=== PATIENT | male | born 1980 | race Caucasian/White ===

== ENCOUNTER 2023-04-08 14:37 | Emergency (ER) | payer SELFPAY ==
[~2023-04-08] VITALS: Ht 170.2 cm; Wt 100.0 kg
[2023-04-08 14:50] VITALS: BP 187/105; PULSE 140; RESP 18; TEMP 101.2; O2SAT 100
[2023-04-08] MEDS ORDERED: MORPHINE SULFATE 4 MG/ML CPJ (NOT FOR IM USE) IV STA (14:53)
[2023-04-08] MEDS ORDERED: ONDANSETRON HCL 4MG/2ML INJ IV STA (14:53)
[2023-04-08] MEDS ORDERED: SODIUM CHLORIDE 0.9% 1000ML BAG (SEPSIS BOLUS) IV ONE (15:00)
[2023-04-08] MEDS ORDERED: ACETAMINOPHEN 325MG TABLET PO ONE (15:00)
[2023-04-08 15:44] LABS: HEMATOCRIT. 42.3 % (42.0-52.0); HEMOGLOBIN. 14.5 g/dL (14.0-18.0); MEAN CORPUSCULAR HEMOGLOBIN 29.9 pg (28.0-32.0); MEAN CORPUSCULAR HGB CONC 34.3 g/dL (31.0-37.0); MEAN PLATELET VOLUME 8.7 fl (7.4-10.4); PLATELET 225 x1000/uL (130-400); RED BLOOD CELL COUNT 4.86 mill/uL (4.7-6.1); WHITE BLOOD COUNT 17.5 x1000/uL (4.5-11.0)
[2023-04-08 15:46] LABS: DIFFERENTIAL COMMENT 1
[2023-04-08 15:52] LABS: INDEX HEMOLYSI 1 (1-3); INDEX ICTERIC 1 (1-4); INDEX LIPEMIC 1 (1-3)
[2023-04-08 15:53] LABS: PROTHROMBIN TIME 10.8 sec (9.6-11.0)
[2023-04-08 15:55] LABS: ALBUMIN 4.2 g/dL (3.4-5.0); CALCIUM 8.9 mg/dL (8.5-10.1); CARBON DIOXIDE 25 mEq/L (21-32); ETHANOL BLOOD < 10 mg/dL (<10); GLUCOSE 153 mg/dL (70-105); UREA NITROGEN BLOOD 17 mg/dL (7-21)
[2023-04-08 16:01] LABS: ALANINE AMINOTRANSFERASE 45 IU/L (13-61); ASPARTATE AMINOTRANSFERASE 20 IU/L (15-37); CREATININE 0.8 mg/dL (0.6-1.3); NT PRO B-TYPE NATRIURETIC PEP 54 pg/mL (5-125); PROTEIN TOTAL 8.4 g/dL (6.0-8.3)
[2023-04-08 16:02] LABS: CHLORIDE 101 mEq/L (98-107); POTASSIUM 3.6 mEq/L (3.5-5.1); SODIUM 134 mEq/L (136-145)
[2023-04-08 16:04] LABS: TROPONIN I HIGH SENSITIVITY 4 ng/L (<78)
[2023-04-08 16:22] LABS: PLATELET ESTIMATE NORMAL
[2023-04-08] MEDS ORDERED: AMPICILLIN SOD/SULBACTAM NA 3 G in SODIUM CHLORIDE 0.9% 100 ML IV STA (19:13)
[2023-04-08] MEDS ORDERED: VANCOMYCIN 1G PREMIX 200 ML IV SCH (19:15)
[2023-04-08] MEDS ORDERED: METRONIDAZOLE 500 MG PREMIX 100 ML IV ONE (19:30)
== END 2023-04-08 22:00 | disposition left against medical advice (07) ==
LOC: ER 14:37 → EDBEDREQ 21:36 → ER 22:00 → CANBEDREQ 23:36
DX: R10.31 Right lower quadrant pain (principal); R10.32 Left lower quadrant pain; R50.9 Fever, unspecified; K57.92 Diverticulitis of intestine, part unspecified, without perforation or abscess without bleeding
CPT/HCPCS: 80053; 80320; 83880; 83605; 83690; 85025; 85610; 86850; 86900; 86901; 87040; 84484; 36415; 71045; 74176; 93005; 99285; J0295; J7050; J7030; G0480